=== PATIENT | female | born 2000 | race Caucasian/White ===

== ENCOUNTER 2024-01-25 19:52 | Emergency (ER) | payer SELFPAY ==
[~2024-01-25] VITALS: Ht 160 cm; Wt 79.4 kg
[2024-01-25 20:12] VITALS: BP 148/90; TEMP 98.2; O2SAT 100
[2024-01-25] MEDS ORDERED: HYDROCODONE/APAP 5/325MG TABLET ONE (20:43)
[2024-01-25] MEDS: HYDROCODONE/APAP 5/325MG TABLET PO ONE (20:45)
== END 2024-01-25 20:46 | disposition home or self-care (01) ==
LOC: ER 20:06
DX: K08.89 Other specified disorders of teeth and supporting structures (principal); Z60.2 Problems related to living alone